=== PATIENT | male | born 1980 | race Two or more races ===

== ENCOUNTER 2021-12-29 06:19 | Day surgery (SDC) | payer OTHER ==
[~2021-12-29] VITALS: Ht 170.2 cm; Wt 95.3 kg
[~2021-12-29 06:19] MED LIST: CLONAZEPAM0.125 MG PO; LAMICTAL25 MG PO; PAXIL20 MG PO; TOPROL XL25 M1 PO; ZESTRIL2.5 MG PO
[2021-12-29] MEDS ORDERED: PERCOCET 5-3251 EACH PO (10:04)
[2021-12-29] MEDS ORDERED: NEURONTIN300 MG PO (10:04)
[2021-12-29] MEDS ORDERED: KETO10TA2 PO (10:04)
== END 2021-12-29 13:00 | disposition home or self-care (01) ==
LOC: CIR.AMB 06:19
PROVIDERS: ATTEND Surgery
DX: K64.2 Third degree hemorrhoids (principal); K62.5 Hemorrhage of anus and rectum; Z20.822 Contact with and (suspected) exposure to COVID-19; Z88.6 Allergy status to analgesic agent; Z88.8 Allergy status to other drugs, medicaments and biological substances; I10 Essential (primary) hypertension; Z87.891 Personal history of nicotine dependence